=== PATIENT | male | born 1945 | race Two or more races ===

== ENCOUNTER → 2018-01-05 06:22 | Outpatient (CLI) | payer OTHER | END | disposition home or self-care (01) | LOC: LAB 06:22 | DX: D68.8 Other specified coagulation defects (principal); E72.11 Homocystinuria; D51.1 Vitamin B12 deficiency anemia due to selective vitamin B12 malabsorption with proteinuria; N40.0 Benign prostatic hyperplasia without lower urinary tract symptoms; M51.86 Other intervertebral disc disorders, lumbar region; I10 Essential (primary) hypertension; D50.8 Other iron deficiency anemias; D51.8 Other vitamin B12 deficiency anemias; E03.8 Other specified hypothyroidism; D68.61 Antiphospholipid syndrome; D68.62 Lupus anticoagulant syndrome; R97.0 Elevated carcinoembryonic antigen [CEA]; R97.8 Other abnormal tumor markers; D51.0 Vitamin B12 deficiency anemia due to intrinsic factor deficiency ==

== ENCOUNTER 2018-02-23 06:36 | Outpatient (CLI) | payer OTHER | END 2018-02-23 06:44 | disposition home or self-care (01) | LOC: LAB 06:36 → RAD 06:36 → LAB 06:44 | DX: J45.998 Other asthma (principal); E11.649 Type 2 diabetes mellitus with hypoglycemia without coma; E11.21 Type 2 diabetes mellitus with diabetic nephropathy; E03.8 Other specified hypothyroidism; D68.8 Other specified coagulation defects ==

== ENCOUNTER 2018-05-01 07:55 | Outpatient (CLI) | payer OTHER | END 2018-05-01 08:04 | disposition home or self-care (01) | LOC: LAB 07:55 | DX: D68.8 Other specified coagulation defects (principal); E72.11 Homocystinuria; D51.1 Vitamin B12 deficiency anemia due to selective vitamin B12 malabsorption with proteinuria; N40.0 Benign prostatic hyperplasia without lower urinary tract symptoms; M51.86 Other intervertebral disc disorders, lumbar region; I10 Essential (primary) hypertension; D50.8 Other iron deficiency anemias; D51.8 Other vitamin B12 deficiency anemias; D68.61 Antiphospholipid syndrome; D68.62 Lupus anticoagulant syndrome; E03.8 Other specified hypothyroidism; E06.3 Autoimmune thyroiditis; R97.20 Elevated prostate specific antigen [PSA]; R97.0 Elevated carcinoembryonic antigen [CEA] ==

== ENCOUNTER 2018-05-01 08:47 | Outpatient (CLI) | payer OTHER | END 2018-05-01 08:55 | disposition home or self-care (01) | LOC: SONOGRAMA 08:47 | DX: E06.3 Autoimmune thyroiditis (principal); E01.0 Iodine-deficiency related diffuse (endemic) goiter; E03.8 Other specified hypothyroidism; D68.8 Other specified coagulation defects; E72.11 Homocystinuria; D51.1 Vitamin B12 deficiency anemia due to selective vitamin B12 malabsorption with proteinuria; N40.0 Benign prostatic hyperplasia without lower urinary tract symptoms; M51.86 Other intervertebral disc disorders, lumbar region; I10 Essential (primary) hypertension ==

== ENCOUNTER 2018-05-05 07:01 | Outpatient (CLI) | payer OTHER | END 2018-05-05 07:12 | disposition home or self-care (01) | LOC: LAB 07:01 | DX: D68.61 Antiphospholipid syndrome (principal); D68.62 Lupus anticoagulant syndrome; D51.1 Vitamin B12 deficiency anemia due to selective vitamin B12 malabsorption with proteinuria; E72.11 Homocystinuria; D68.8 Other specified coagulation defects; N40.0 Benign prostatic hyperplasia without lower urinary tract symptoms; M51.86 Other intervertebral disc disorders, lumbar region; I10 Essential (primary) hypertension; R97.0 Elevated carcinoembryonic antigen [CEA]; R97.20 Elevated prostate specific antigen [PSA]; E72.12 Methylenetetrahydrofolate reductase deficiency ==

== ENCOUNTER 2018-09-11 08:02 | Outpatient (CLI) | payer OTHER | END 2018-09-11 08:12 | disposition home or self-care (01) | LOC: LAB 08:02 | DX: D68.61 Antiphospholipid syndrome (principal); D68.62 Lupus anticoagulant syndrome; E72.12 Methylenetetrahydrofolate reductase deficiency; E72.11 Homocystinuria; D51.1 Vitamin B12 deficiency anemia due to selective vitamin B12 malabsorption with proteinuria; D68.8 Other specified coagulation defects; N40.0 Benign prostatic hyperplasia without lower urinary tract symptoms; M51.86 Other intervertebral disc disorders, lumbar region; I10 Essential (primary) hypertension; R97.0 Elevated carcinoembryonic antigen [CEA]; R97.20 Elevated prostate specific antigen [PSA]; D50.8 Other iron deficiency anemias; D51.8 Other vitamin B12 deficiency anemias; R97.8 Other abnormal tumor markers ==

== ENCOUNTER 2018-10-02 07:59 | Outpatient (CLI) | payer OTHER | END 2018-10-02 08:04 | disposition home or self-care (01) | LOC: LAB 07:59 | DX: D68.8 Other specified coagulation defects (principal); E78.2 Mixed hyperlipidemia; E11.65 Type 2 diabetes mellitus with hyperglycemia; N39.0 Urinary tract infection, site not specified ==

== ENCOUNTER 2018-10-02 08:25 | Outpatient (CLI) | payer OTHER | END 2018-10-02 08:37 | disposition home or self-care (01) | LOC: RAD 501 08:25 → RAD 08:25 | DX: N20.0 Calculus of kidney (principal) ==

== ENCOUNTER 2019-01-07 07:19 | Outpatient (CLI) | payer OTHER | END 2019-01-07 07:30 | disposition home or self-care (01) | LOC: LAB 07:19 | DX: E11.65 Type 2 diabetes mellitus with hyperglycemia (principal); D64.89 Other specified anemias; E03.8 Other specified hypothyroidism ==

== ENCOUNTER 2019-01-07 09:37 | Outpatient (CLI) | payer OTHER | END 2019-01-07 10:50 | disposition home or self-care (01) | LOC: NUCLEAR 09:37 | DX: M81.0 Age-related osteoporosis without current pathological fracture (principal) ==

== ENCOUNTER → 2019-04-23 07:23 | Outpatient (CLI) | payer OTHER | END | disposition home or self-care (01) | LOC: LAB 07:23 | DX: E78.2 Mixed hyperlipidemia (principal); N39.0 Urinary tract infection, site not specified; N40.1 Benign prostatic hyperplasia with lower urinary tract symptoms; Z12.11 Encounter for screening for malignant neoplasm of colon; E11.21 Type 2 diabetes mellitus with diabetic nephropathy; D64.89 Other specified anemias ==

== ENCOUNTER → 2019-04-26 06:18 | Outpatient (CLI) | payer OTHER | END | disposition home or self-care (01) | LOC: LAB 06:18 | DX: E78.2 Mixed hyperlipidemia (principal); N39.0 Urinary tract infection, site not specified; N40.1 Benign prostatic hyperplasia with lower urinary tract symptoms; Z12.11 Encounter for screening for malignant neoplasm of colon; E11.21 Type 2 diabetes mellitus with diabetic nephropathy ==

== ENCOUNTER 2019-08-03 06:46 | Outpatient (CLI) | payer OTHER | END 2019-08-03 15:00 | disposition home or self-care (01) | LOC: LAB 06:46 | DX: E11.65 Type 2 diabetes mellitus with hyperglycemia (principal); E78.2 Mixed hyperlipidemia ==

== ENCOUNTER 2019-10-25 08:36 | Outpatient (CLI) | payer OTHER | END 2019-10-25 08:40 | disposition home or self-care (01) | LOC: LAB 08:36 | DX: E11.65 Type 2 diabetes mellitus with hyperglycemia (principal); N39.0 Urinary tract infection, site not specified; D64.89 Other specified anemias; D68.8 Other specified coagulation defects; E78.2 Mixed hyperlipidemia ==

== ENCOUNTER 2019-10-25 09:09 | Outpatient (CLI) | payer OTHER | END 2019-10-25 09:11 | disposition home or self-care (01) | LOC: TOM 09:09 | DX: G46.3 Brain stem stroke syndrome (principal) ==

== ENCOUNTER 2020-05-14 08:21 | Outpatient (CLI) | payer OTHER | END 2020-05-14 08:25 | disposition home or self-care (01) | LOC: LAB 08:21 | PROVIDERS: ATTEND Specialist | DX: E11.21 Type 2 diabetes mellitus with diabetic nephropathy (principal) ==

== ENCOUNTER 2020-08-08 07:46 | Outpatient (CLI) | payer OTHER | END 2020-08-08 07:54 | disposition home or self-care (01) | LOC: RAD 07:46 | PROVIDERS: ATTEND Specialist | DX: M51.37 Other intervertebral disc degeneration, lumbosacral region (principal); M40.36 Flatback syndrome, lumbar region ==

== ENCOUNTER 2020-10-15 08:04 | Outpatient (CLI) | payer OTHER | END 2020-10-15 08:09 | disposition home or self-care (01) | LOC: LAB 08:04 | PROVIDERS: ATTEND Specialist | DX: E03.8 Other specified hypothyroidism (principal); N40.1 Benign prostatic hyperplasia with lower urinary tract symptoms; E55.9 Vitamin D deficiency, unspecified; D64.89 Other specified anemias; E78.2 Mixed hyperlipidemia; N39.0 Urinary tract infection, site not specified; E11.65 Type 2 diabetes mellitus with hyperglycemia; Z12.11 Encounter for screening for malignant neoplasm of colon ==

== ENCOUNTER 2020-11-26 10:26 | Outpatient (CLI) | payer OTHER | END 2020-11-26 10:31 | disposition home or self-care (01) | LOC: NUCLEAR 10:26 | PROVIDERS: ATTEND Specialist | DX: M81.0 Age-related osteoporosis without current pathological fracture (principal) ==

== ENCOUNTER → 2022-01-17 | Outpatient (CLI) | payer OTHER | END | disposition home or self-care (01) | LOC: RAD 07:55 | PROVIDERS: ATTEND Specialist | DX: J45.998 Other asthma (principal) ==

== ENCOUNTER 2022-04-15 07:38 | Outpatient (CLI) | payer OTHER | END 2022-04-15 07:39 | disposition home or self-care (01) | LOC: SONOGRAMA 07:38 | PROVIDERS: ATTEND Specialist | DX: N18.31 Chronic kidney disease, stage 3a (principal) ==

== ENCOUNTER → 2022-08-05 | Outpatient (CLI) | payer OTHER | END | disposition home or self-care (01) | LOC: TOM 07:22 | PROVIDERS: ATTEND Specialist | DX: I63.9 Cerebral infarction, unspecified (principal) ==